=== PATIENT | female | born 1965 | race Caucasian/White ===

== ENCOUNTER 2018-11-19 07:55 | Day surgery (SDC) | payer MEDICAID, OTHER ==
[~2018-11-19 07:55] MED LIST: Lactated Ringers 1,000 ML IV SCH; Lidocaine 1%/Sod Bicarbonate in NS 8.4% 1 ML Syringe IDERM PRN; Sodium Chloride 0.9% 10 ML Syringe FLUSH PRN
--- NOTE | 2018-11-19 09:36 | PCM.PREANE ---
Preanesthetic Assessment - Anesthesia/Transfusion/Family Hx Anesthesia History: Prior Anesthesia Without Reaction Family History of Anesthesia Reaction: No Transfusion History: No Prior Transfusion(s) Intubation History: Unknown - Review of Systems General: No Symptoms Pulmonary: No Symptoms (COPD: quit smoking in 2016), Cough, Sputum (clear) Cardiovascular: No Symptoms (History of HTN), Dyspnea on Exertion, Edema ( history of feet swelling) Gastrointestinal: No Symptoms Neurological: No Symptoms (chronic lower back pain) Other: Reports: None (Decreased kidney function noted with lab values assessed.) , Thyroid Problems (hypothyroid), Depression, Anxiety - Physical Assessment NPO Status Date: 11/18/18 NPO Status Time: 16:00 Pulse: 80 O2 Sat by Pulse Oximetry: 100 Respiratory Rate: 16 Blood Pressure: 110/72 Temperature: 36.6 C Vital Signs: Last Vital Signs Temp 36.6 C 11/19/18 08:25 Pulse 80 11/19/18 08:25 Resp 16 11/19/18 08:25 BP 110/72 11/19/18 08:25 Pulse Ox 100 11/19/18 08:25 Height: 1.63 m Weight: 106.141 kg ASA Class: 2 Mental Status: Alert & Oriented x3 Airway Class: Mallampati = 3 Dentition: Reports: Broken Tooth/Teeth, Missing Tooth/Teeth (very loose tooth on the bottom front) Thyro-Mental Finger Breadths: 3 Mouth Opening Finger Breadths: 3 ROM/Head Extension: Full Lungs: Clear to Auscultation, Normal Respiratory Effort Cardiovascular: Regular Rate, Regular Rhythm, No Murmurs - Imaging/EKG Impressions: EKG: NSR rate= 74, ST segment elevation, probable normal early repolarization pattern - Allergies Allergies/Adverse Reactions: Allergies Allergy/AdvReac Type Severity Reaction Status Date / Time No Known Allergies Allergy Verified 11/18/18 14:03 - Anesthesia Plan Pre-Op Medication Ordered: None - Acknowledgements Anesthesia Type Planned: MAC Pt an Appropriate Candidate for the Planned Anesthesia: Yes Alternatives and Risks of Anesthesia Discussed w Pt/Guardian: Yes Pt/Guardian Understands and Agrees with Anesthesia Plan: Yes PreAnesthesia Questionnaire HEENT History: Reports: Hard of Hearing Cardiovascular History: Reports: Hypertension Respiratory History: Reports: COPD Gastrointestinal History: Reports: Other (See Below) Other Gastrointestinal History: Pilonidal cyst Genitourinary History: Reports: None [employer]ELOPER History: Reports: None Musculoskeletal History: Reports: Back Pain, Chronic, Osteoarthritis Neurological History: Reports: None Psychiatric History: Reports: Anxiety, Depression Endocrine/Metabolic History: Reports: Obesity/BMI 30+ Hematologic History: Reports: None Immunologic History: Reports: None Oncologic (Cancer) History: Reports: None Dermatologic History: Reports: None - Past Surgical History Head Surgeries/Procedures: Reports: None HEENT Surgical History: Reports: Tonsillectomy Cardiovascular Surgical History: Reports: None Respiratory Surgical History: Reports: None GI Surgical History: Reports: Other (See Below) Other GI Surgeries/Procedures: I&D of pilonidal cyst Female Surgical History: Reports: None Endocrine Surgical History: Reports: None Neurological Surgical History: Reports: None Musculoskeletal Surgical History: Reports: None Dermatological Surgical History: Reports: None - SUBSTANCE USE Smoking Status *Q: Former Smoker Second Hand Smoke Exposure: No Recreational Drug Use History: No - HOME MEDS Home Medications: Home Meds Albuterol Sulfate [Proair Respiclick] 1 - 2 puff IH Q4H PRN 11/18/18 [History] Cyclobenzaprine [Flexeril] 10 mg PO TID PRN 11/18/18 [History] Fluticasone/Umeclidin/Vilanter [Trelegy Ellipta 100-62.5-25] 1 puff IH DAILY 03/01 [History] Levothyroxine [Synthroid] 50 mcg PO ACBREAKFAST 11/18/18 [History] Lisinopril 40 mg PO DAILY 11/18/18 [History] Venlafaxine [Effexor] 75 mg PO BID 11/18/18 [History] Vitamin E 400 unit PO DAILY 11/18/18 [History] Vitamins A and D [Vitamin A and D] 1 cap PO DAILY 11/18/18 [History] hydrOXYzine HCl [Atarax] 50 mg PO Q6H PRN 11/18/18 [History] hydroCHLOROthiazide [Hydrochlorothiazide] 25 mg PO DAILY PRN 11/18/18 [History] - CURRENT (IN HOUSE) MEDS Current Meds: Current Medications Lactated Ringer's (Ringers, Lactated) 1,000 mls @ 125 mls/hr IV ASDIRECTED FRANKO Stop: 11/19/18 23:00 Last Admin: 11/19/18 08:45 Dose: 125 mls/hr Lidocaine/Sodium Bicarbonate (Buffered Lidocaine 1% In Ns 8.4%) 0.25 ml IDERM ONETIME PRN PRN Reason: Prior to IV Start Stop: 11/19/18 18:00 Last Admin: 11/19/18 08:44 Dose: 0.25 ml Sodium Chloride (Saline Flush) 10 ml FLUSH ASDIRECTED PRN PRN Reason: Keep Vein Open Stop: 11/19/18 18:00
[2018-11-19] MEDS ORDERED: Propofol 200 MG/20 ML SDV ONE ×3 (09:44→11:14)
[2018-11-19] MEDS ORDERED: Midazolam 1 MG/ML 2 ML SDV ONE (09:45)
--- NOTE | 2018-11-19 11:42 | PCM.OPNOTE ---
- General Post-Op/Procedure Note Date of Surgery/Procedure: 11/19/18 Operative Procedure(s): colonoscopy to cecum with polypectomy Pre Op Diagnosis: positive fit test Post-Op Diagnosis: Same Anesthesia Technique: MAC Primary Surgeon: Celestine Caal EBL in mLs: 0 Complications: None Condition: Good
--- NOTE | 2018-11-19 11:52 | PCM48HPAN ---
Post Anesthesia Note - EVALUATION WITHIN 48HRS OF ANESTHETIC Vital Signs in Normal Range: Yes Patient Participated in Evaluation: Yes Respiratory Function Stable: Yes Airway Patent: Yes Cardiovascular Function Stable: Yes Hydration Status Stable: Yes Pain Control Satisfactory: Yes Nausea and Vomiting Control Satisfactory: Yes Mental Status Recovered: Yes Pulse Rate: 80 Resp Rate: 16 Temperature: 36.6 C Blood Pressure: 110/72
--- NOTE | 2018-11-19 11:52 | PCM.POSTAN ---
POST ANESTHESIA ASSESSMENT - MENTAL STATUS Mental Status: Alert - RESPIRATORY Respiratory Status: Respiratory Rate WNL, Airway Patent, O2 Saturation Stable - CARDIOVASCULAR CV Status: Pulse Rate WNL, Blood Pressure Stable - GASTROINTESTINAL GI Status: No Symptoms - POST OP HYDRATION Hydration Status: Adequate & Stable
--- NOTE | 2018-11-20 08:22 | OR ---
DATE OF OPERATION: 11/19/2018 SURGEON: Celestine Caal MD PREOPERATIVE DIAGNOSIS: Positive FIT test. POSTOPERATIVE DIAGNOSIS: Positive FIT test. OPERATION PERFORMED: Colonoscopy to cecum with complete removal of a diminutive polyp in the rectum. ANESTHESIA: Done under IV sedation ESTIMATED BLOOD LOSS: 0 mL. DESCRIPTION OF PROCEDURE: The patient was taken to the endoscopy room, placed in a supine position, connected to monitoring equipment, and given IV sedation. Placed in the left lateral position. Perianal area was unremarkable. Rectal exam showed good sphincter tone. Video Olympus colonoscope was then introduced into the rectum and threaded up without problem to the cecum, where the appendicular orifice was noted and photographed. Prep was good. [place] Cleansing Score grade B. The scope was slowly withdrawn showing the cecum, ascending colon, transverse colon, descending colon, sigmoid colon, and rectum. In the rectum was a diminutive polyp, which was completely removed by cold biopsy forceps and sent to pathology. The patient tolerated the procedure and sent to the recovery room in a stable condition. MMODAL /[id number]
== END 2018-11-19 13:05 | disposition home or self-care (01) ==
LOC: JD.SDS 07:55
PROVIDERS: ATTEND Surgery
DX: K62.1 Rectal polyp (principal); I10 Essential (primary) hypertension; E03.9 Hypothyroidism, unspecified; J44.9 Chronic obstructive pulmonary disease, unspecified; F33.41 Major depressive disorder, recurrent, in partial remission; F41.1 Generalized anxiety disorder; M15.9 Polyosteoarthritis, unspecified; E66.9 Obesity, unspecified; Z68.41 Body mass index [BMI] 40.0-44.9, adult; Z87.891 Personal history of nicotine dependence; Z79.51 Long term (current) use of inhaled steroids; Z79.899 Other long term (current) drug therapy
CPT/HCPCS: 00812; 93005; J2250; J2704; J7120